=== PATIENT | female | born 1930 | race Caucasian/White ===

== ENCOUNTER → 2018-04-13 | Outpatient (CLI) | payer MEDICARE, BC ==
[2018-04-13 23:22] LABS: COLLECTION METHOD CLEAN CATCH
[2018-04-13 23:30] LABS: PH 7 (5-8); SQUAMOUS EPITHELIAL 0-2 /hpf; URINE APPEARANCE Clear; URINE BACTERIA Rare /hpf; URINE BILIRUBIN Negative (NEGATIVE); URINE BLOOD Negative (NEGATIVE); URINE COLOR Yellow; URINE GLUCOSE Negative (NEGATIVE); URINE KETONE Negative (NEGATIVE); URINE LEUKOCYTE ESTERASE 1+ (NEGATIVE); URINE NITRATE Negative (NEGATIVE); URINE PROTEIN(semi-quant) Negative (NEGATIVE); URINE RBC 0-2 /hpf; URINE UROBILINOGEN Negative (NEGATIVE)
== END ==
LOC: ZCOL.LAB 23:03
PROVIDERS: Family Medicine
DX: R41.82 Altered mental status, unspecified (principal); R53.83 Other fatigue

== ENCOUNTER → 2018-11-23 | Outpatient (CLI) | payer MEDICARE, BC ==
[2018-11-24 04:01] LABS: COLLECTION METHOD CLEAN CATCH
[2018-11-24 04:02] LABS: MUCOUS Present /lpf; PH 6 (5-8); SQUAMOUS EPITHELIAL 0-2 /hpf; URINE APPEARANCE Clear; URINE BACTERIA None Seen /hpf; URINE BILIRUBIN Negative (NEGATIVE); URINE BLOOD Negative (NEGATIVE); URINE COLOR Straw; URINE GLUCOSE Negative (NEGATIVE); URINE KETONE Negative (NEGATIVE); URINE LEUKOCYTE ESTERASE 2+ (NEGATIVE); URINE NITRATE Negative (NEGATIVE); URINE PROTEIN(semi-quant) Negative (NEGATIVE); URINE RBC 0-2 /hpf; URINE UROBILINOGEN Negative (NEGATIVE)
== END ==
LOC: COL.LAB 17:09
PROVIDERS: Family Medicine
DX: N39.0 Urinary tract infection, site not specified (principal)